=== PATIENT | female | born 2000 | race Two or more races ===

== ENCOUNTER → 2019-07-08 | Outpatient (CLI) | payer SELFPAY ==
--- NOTE | 2019-07-08 15:52 | RADIOLOGY REPORT (SQ) ---
EXAM DESCRIPTION: U/S [id number] TRNABD 1GES W/ODOP COMPLETED DATE/TIME: 07/08/2019 1:57 pm REASON FOR STUDY: Z34.01 ENCNTR FOR SUPRVSN OF NORMAL FIRST PREG, FIRST TRIMESTER Z34.01 ENCNTR FOR SUPRVSN OF NORMAL FIRST PREG, FIRST TRIMES COMPARISON: None. TECHNIQUE: Transabdominal static and realtime grayscale images acquired of the pelvis. Additional se lected spectral and color Doppler images recorded. All images stored on PACs. bHCG: Not available CLINICAL DATES: LMP 04/30/2019. 9 weeks 6 days. LIMITATIONS: None. FINDINGS: FETUS: Single Living intrauterine . ULTRASOUND EGA: 11 weeks 5 days ULTRASOUND BAILEE: 01/22/2020 EFW: Not applicable less than 20 weeks. CRL: 4.9 cm. FHR: 173 beats per minute. SURVEY: Too early to assess. AMNIOTIC FLUID: Adequate amount. PLACENTA: Not yet developed due to early gestation. SUBCHORIONIC BLEED: Yes SIZE OF BLEED: 2.1 x 1.9 x 0.3 cm UTERUS: No masses. No anomalies. CERVICAL LENGTH: 2 cm. Closed. RIGHT ADNEXA: Normal ovary with normal vascular flow. 3.6 x 2 x 2 cm. No adnexal free fluid. No adnexal masses. LEFT ADNEXA: Normal ovary with normal vascular flow. 3 x 2.2 x 1.3 cm. No adnexal free fluid. No adnexal masses. FREE FLUID: None. OTHER: No other significant finding. IMPRESSION: LIVING INTRAUTERINE . EGA 11 weeks 5 days. Trimester of : First trimester - 0 to 13 weeks. TECHNICAL DOCUMENTATION: JOB ID: [id number] [employer]- All Rights Reserved rev Reading location - IP/workstation name: [email or web address]
== END ==
LOC: RAD 13:06
PROVIDERS: ATTEND Midwife
DX: Z34.01 Encounter for supervision of normal first pregnancy, first trimester (principal); Z3A.11 11 weeks gestation of pregnancy
CPT/HCPCS: 76801

== ENCOUNTER 2019-07-29 14:54 | Emergency (ER) | payer SELFPAY ==
[2019-07-29] MEDS ORDERED: ACETAMINOPHEN 325 MG TABLET PO ONE (15:39)
--- NOTE | 2019-07-29 15:40 | ER Document Report ---
ED Medical Screen (RME) - General Chief Complaint: Abdominal Pain Stated Complaint: ABDOMINAL PAIN Time Seen by Provider: 07/29/19 15:24 Primary Care Provider: DAPHNE STARK CNM [Primary Care Provider] - Follow up as needed Mode of Arrival: Ambulatory Information source: Patient Notes: This 19-year-old female that speaks Urdu only presents to the emergency department with complaints of abdominal pain vaginal bleeding that started this morning. She reports she is G1, P0. Has not had a menses since April. Ultrasound report from July 07 notes approximately 9 weeks . She denies fever vomiting diarrhea but reports a headache. Denies trauma. I have greeted and performed a rapid initial assessment of this patient. A comprehensive ED assessment and evaluation of the patient, analysis of test results and completion of the medical decision making process will be conducted by additional ED providers. TRAVEL OUTSIDE OF THE [place] IN LAST 30 DAYS: No Physical Exam - Vital signs Vitals: Temp Pulse Resp BP Pulse Ox 98.6 F 71 16 107/58 L 98 07/29/19 15:01 07/29/19 15:01 07/29/19 15:01 07/29/19 15:01 07/29/19 15:01 Course - Vital Signs Vital signs: Temp Pulse Resp BP Pulse Ox 98.6 F 71 16 107/58 L 98 07/29/19 15:01 07/29/19 15:01 07/29/19 15:01 07/29/19 15:01 07/29/19 15:01 Doctor's Discharge - Discharge Referrals: DAPHNE STARK CNM [Primary Care Provider] - Follow up as needed
--- NOTE | 2019-07-29 16:45 | ER Document Report ---
ED GI/ - General Chief Complaint: Vaginal Bleeding Stated Complaint: ABDOMINAL PAIN Time Seen by Provider: 07/29/19 15:24 Primary Care Provider: [facility] [Provider Group] - Follow up as needed DAPHNE STARK CNM [NO LOCAL MD] - Follow up as needed Mode of Arrival: Ambulatory Information source: Patient Notes: 19-year-old female presented to ED for complaint of vaginal spotting today this morning about 3 AM. She states it is only spotting when she goes to the bathroom. She states she does have some pelvic pain and some vaginal pain. She does not have any vaginal discharge except for spotting when she goes to the bathroom. She states she was seen on 07 July she was 9 weeks . She denies any nausea vomiting or diarrhea. She states states she does sometimes have a headache. She states she has no other concerns. I did use the inspector toys [id number] to do this interview. TRAVEL OUTSIDE OF THE [place] IN LAST 30 DAYS: No - HPI Patient complains to provider of: Pelvic pain, , Vaginal bleeding, Vaginal pain Onset: This morning Timing/Duration: Gradual Quality of pain: Cramping Severity at maximum: Moderate Severity in ED: Mild Pain Level: 2 Location: Pelvis, Vaginal Vaginal bleeding (Compared to normal period): Spotting Associated symptoms: Other - No spotting pelvic pain mostly in the vaginal area Exacerbated by: Denies Relieved by: Denies Similar symptoms previously: No Recently seen / treated by doctor: Yes Past Medical History - General Information source: Patient - Social History Smoking Status: Never Smoker Smoking Education Provided: No Frequency of alcohol use: None Drug Abuse: None Lives with: Family Family History: Reviewed & Not Pertinent Patient has suicidal ideation: No Patient has homicidal ideation: No - Past Medical History Cardiac Medical History: Reports: None Pulmonary Medical History: Reports: None EENT Medical History: Reports: None Neurological Medical History: Reports: None Endocrine Medical History: Reports: None Renal/ Medical History: Reports: None Malignancy Medical History: Reports: None GI Medical History: Reports: None Musculoskeletal Medical History: Reports None Skin Medical History: Reports None Psychiatric Medical History: Reports: None Traumatic Medical History: Reports: None Infectious Medical History: Reports: None Surgical Hx: Negative Past Surgical History: Reports: None Physical Exam - Vital signs Vitals: Temp Pulse Resp BP Pulse Ox 98.6 F 71 16 107/58 L 98 07/29/19 15:01 07/29/19 15:01 07/29/19 15:01 07/29/19 15:01 07/29/19 15:01 Interpretation: Normal - General General appearance: Appears well, Alert - HEENT Head: Normocephalic, Atraumatic Eyes: Normal Pupils: PERRL - Respiratory Respiratory status: No respiratory distress Chest status: Nontender Breath sounds: Normal Chest palpation: Normal - Cardiovascular Rhythm: Regular Heart sounds: Normal auscultation Murmur: No - Abdominal Inspection: Normal Distension: No distension Bowel sounds: Normal Tenderness: Nontender Organomegaly: No organomegaly - Back Back: Normal, Nontender - Extremities General upper extremity: Normal inspection, Nontender, Normal color, Normal ROM, Normal temperature General lower extremity: Normal inspection, Nontender, Normal color, Normal ROM, Normal temperature, Normal weight bearing. No: Karan's sign - Neurological Neuro grossly intact: Yes Cognition: Normal Orientation: AAOx4 Orange Coma Scale Eye Opening: Spontaneous Gabe Coma Scale Verbal: Oriented Gabe Coma Scale Motor: Obeys Commands Orange Coma Scale Total: 15 Speech: Normal Motor strength normal: LUE, RUE, LLE, RLE Sensory: Normal - Psychological Associated symptoms: Normal affect, Normal mood - Skin Skin Temperature: Warm Skin Moisture: Dry Skin Color: Normal Course - Re-evaluation Re-evalutation: 07/29/19 21:16 Labs and ultrasound were discussed with patient through the explosive ordnance technician Anant. Written report of the labs and ultrasound given to patient for follow-up with her primary care doctor. Patient was able to verbalize understanding and agreement with treatment plan patient was discharged home. Patient was treated with antibiotics while in the emergency room. - Vital Signs Vital signs: Temp Pulse Resp BP Pulse Ox 98.4 F 71 14 120/72 100 07/29/19 18:30 07/29/19 15:01 07/29/19 18:30 07/29/19 18:30 07/29/19 18:30 - Laboratory Result Diagrams: 07/29/19 16:45 07/29/19 16:45 Laboratory results interpreted by me: 07/29/19 07/29/19 07/29/19 15:47 16:45 16:45 Hct 34.9 L RDW 14.5 H Lymph % (Auto) 10.5 L Absolute Neuts (auto) 8.3 H Seg Neutrophils % 83.4 H Sodium 136.5 L Creatinine 0.33 L ALT 46 H Beta HCG, Quant 45777.00 H Urine Blood LARGE H Ur Leukocyte Esterase SMALL H Urine Ascorbic Acid 20 H - Diagnostic Test Radiology reviewed: Image reviewed, Reports reviewed Discharge - Discharge Clinical Impression: UTI (urinary tract infection) during Qualifiers: Trimester: second trimester Qualified Code(s): O23.42 - Unspecified infection of urinary tract in , second trimester Condition: Stable Disposition: HOME, SELF-CARE Additional Instructions: URINARY TRACT INFECTION: Your evaluation indicates that you have a urinary tract infection. This is due to germs growing in the bladder. This is a common problem. This infection usually responds quickly to antibiotics. Your antibiotic should be taken exactly as prescribed. Drink plenty of fluids -- three to four quarts a day. Occasionally, a bladder anesthetic will be prescribed to help stop the feeling of urgency until the antibiotic has a chance to clear the infection. This may cause your urine to be dark orange. Certain urine infections require a culture. If the doctor obtained a culture, the results will be back in two days. You should call to see if a change in treatment is needed. A repeat urinalysis after you finish treatment is often recommended. The physician will let you know if further testing is required. Call the doctor if you develop fever, chills, flank pain, inability to urinate, or blood in the urine. CEPHALEXIN: The antibiotic you've been prescribed is a member of the cephalosporin class. This type of antibiotic covers a wide variety of infections, including those of the skin, lungs, and urinary tract. It's useful for staph infections. This antibiotic is slightly similar to the penicillin family. In rare cases, a person who is allergic to penicillin will also be allergic to this medication. If you have had a severe allergic reaction to penicillin, and have not taken this antibiotic since that time, notify your doctor. Antibiotics which cover many germs ("broad spectrum" antibiotics) are more likely to cause diarrhea or "yeast" infections. Women prone to vaginal yeast problems may suffer an attack after taking this antibiotic. In infants, oral thrush (white spots "stuck" on the cheek) or yeast diaper rash may result. See your doctor if these problems occur. Call at once if you develop itching, hives, shortness of breath, or lightheadedness. Rocephin You have been given an injection of an antibiotic called Rocephin (ceftriaxone). Sometimes the injection must be combined with antibiotic pills. For some infections, such as an uncomplicated ear infection, Rocephin provides all the antibiotic that's needed. The antibiotic will be in your body for about two days. For serious infections, we usually repeat doses of Rocephin daily. Side effects are very unusual following a shot. Women may develop vaginal yeast infections, and babies can get yeast (thrush) in the mouth following the use of antibiotics. Contact your physician if you have symptoms with this medication. Allergy to this antibiotic can result in hives, wheezing, faintness, or itching. If symptoms of allergy occur, call the doctor at once. FOLLOW-UP CARE: If you have been referred to a physician for follow-up care, call the physicians office for an appointment as you were instructed or within the next two days. If you experience worsening or a significant change in your symptoms, notify the physician immediately or return to the Emergency Department at any time for re-evaluation. Prescriptions: Cephalexin Monohydrate [Keflex 500 mg Capsule] 500 mg PO Q6H 5 Days #20 capsule Referrals: DAPHNE STARK CNM [NO LOCAL MD] - Follow up as needed [facility] [Provider Group] - Follow up as needed
[2019-07-29 16:57] LABS: ABSOLUTE EOSINOPHILS # (AUTO) 0.1 10^3/uL (0.0-0.6); ABSOLUTE MONOCYTES (AUTO) 0.5 10^3/uL (0.1-1.4); ABSOLUTE NEUT (AUTO) 8.3 10^3/uL (1.7-8.2); BASOPHILS % (AUTO) 0.3 % (0-2); HEMATOCRIT 34.9 % (36.0-47.0); HEMOGLOBIN 12.2 g/dL (12.0-15.5); LYMPHOCYTES % (AUTO) 10.5 % (13-45); MEAN CORPUSCULAR HEMOGLOBIN 29.2 pg (27.0-33.4); MEAN CORPUSCULAR VOLUME 84 fl (80-97); MONOCYTES % (AUTO) 4.8 % (3-13); PLATELET COUNT 376 10^3/uL (150-450); RED BLOOD COUNT 4.17 10^6/uL (3.72-5.28); RED CELL DISTRIBUTION WIDTH 14.5 % (11.5-14.0); SEGMENTED NEUTROPHILS % (AUTO) 83.4 % (42-78); TOTAL CELLS COUNTED % (AUTO) 100 %; WHITE BLOOD COUNT 9.9 10^3/uL (4.0-10.5)
[2019-07-29 17:15] LABS: ALBUMIN 4.4 g/dL (3.5-5.0); ALKALINE PHOSPHATASE 81 U/L (38-126); ANION GAP 11 (5-19); ASPARTATE AMINO TRANSFERASE 35 U/L (14-36); BILIRUBIN,TOTAL 0.3 mg/dL (0.2-1.3); BLOOD UREA NITROGEN 7 mg/dL (7-20); CALCIUM 9.4 mg/dL (8.4-10.2); CARBON DIOXIDE 22 mmol/L (22-30); CHLORIDE 104 mmol/L (98-107); GLUCOSE 79 mg/dL (75-110); POTASSIUM 3.7 mmol/L (3.6-5.0); TOTAL PROTEIN 7.9 g/dL (6.3-8.2)
[2019-07-29 17:16] LABS: AMORPHOUS SEDIMENT,URINE TRACE /HPF; APPEARANCE,URINE CLOUDY; BILIRUBIN,URINE NEGATIVE (NEGATIVE); COLOR,URINE AMBER; GLUCOSE, URINE NEGATIVE (NEGATIVE); KETONES,URINE NEGATIVE (NEGATIVE); LEUKOCYTE ESTERASE,URINE SMALL (NEGATIVE); NITRITE,URINE NEGATIVE (NEGATIVE); PROTEIN,URINE NEGATIVE (NEGATIVE); UROBILINOGEN,URINE NEGATIVE mg/dL (<2.0)
--- NOTE | 2019-07-29 17:20 | RADIOLOGY REPORT (SQ) ---
EXAM DESCRIPTION: U/S OB LIMITED COMPLETED DATE/TIME: 07/29/2019 5:10 pm REASON FOR STUDY: preg abd pain COMPARISON: Ultrasound from 07/08/2019. TECHNIQUE: Limited transabdominal grayscale ultrasound for evaluation of specific requested obstetri martin parameters. LIMITATIONS: None. FINDINGS: EGA: 15 weeks 0 days. CERVICAL LENGTH: 2.4 cm. Closed. LVP: 3.2 x 3.2 cm. FHR: 168 beats per minute. PRESENTATION: Variable. PLACENTA: Too early to assess. ANATOMY: Too early to assess. OTHER: The ovaries are normal in size and appearance and on Doppler there is intact arterial inflow a nd venous outflow within the ovarian stroma. There is no adnexal mass. IMPRESSION: Single live intrauterine with appropriate interval growth. Trimester of : Second trimester - 13 weeks 1 day to 27 weeks 6 days. TECHNICAL DOCUMENTATION: JOB ID: [id number] 2010 [employer]- All Rights Reserved Reading location - IP/workstation name: [email or web address]
[2019-07-29] MEDS ORDERED: CEFTRIAXONE INJ 1000 MG VIAL IM ONE (18:08)
[2019-07-29] MEDS ORDERED: LIDOCAINE 1% INJ-PF (10 MG/ML) 30 ML SDV INJ ONE (18:08)
[2019-07-29 18:31] VITALS: BP 120/72
== END 2019-07-29 18:32 | disposition home or self-care (01) ==
LOC: ER 14:54
DX: O23.41 Unspecified infection of urinary tract in pregnancy, first trimester (principal); O26.91 Pregnancy related conditions, unspecified, first trimester; R10.9 Unspecified abdominal pain; Z3A.09 9 weeks gestation of pregnancy
CPT/HCPCS: 99284; 96372; 86900; 86901; 36415; 84702; 85025; 80053; 81001; 76815; J3490; J0696

== ENCOUNTER → 2019-09-04 | Outpatient (CLI) | payer SELFPAY ==
--- NOTE | 2019-09-04 14:46 | RADIOLOGY REPORT (SQ) ---
EXAM DESCRIPTION: U/S OB 14+ TRNABD 1GES W/O DOP IMAGES COMPLETED DATE/TIME: 09/04/2019 1:38 pm REASON FOR STUDY: Z34.82 ENCOUNTER FOR SUPRVSN OF NORMAL , SECOND TRIMESTER Z34.82 ENCOUNT ER FOR SUPRVSN OF NORMAL , SECOND TRI COMPARISON: None. TECHNIQUE: Static and Dynamic grayscale imaging performed of gravid uterus using transabdominal appr oach. Additional selected color Doppler and spectral images recorded. All stored on PACS. LIMITATIONS: None. FINDINGS: FETUSES SEEN:1 EGA: 19 weeks 5 days Calculated using BPD,FL,HC,AC documented on images. No discrepancy with clinica l dates. BAILEE: 01/24/2020 EFW: 300 grams PERCENTILE: Not applicable. Fetus less than or equal to 20 weeks gestation. LVP: 7.8 cm PLACENTA: Posterior. GRADE: I PRESENTATION: Breech. ANATOMY: HEART RATE: 173 beats per minute. FOUR CHAMBER HEART: Visualized. THREE VESSEL CORD: Yes. CORD INSERTION: Visualized. KIDNEYS AND BLADDER: Visualized. Appear normal. STOMACH: Visualized. Appears normal. SPINE: Normal as visualized. BRAIN AND LATERAL VENTRICLES: Visualized. Appear normal. OTHER: No other significant finding. MATERNAL ADNEXA: Maternal ovaries not visualized. CERVICAL LENGTH: 4.4 cm. Closed. OTHER: No other significant finding. IMPRESSION: LIVING INTRAUTERINE . ESTIMATED GESTATIONAL AGE 19 weeks 5 days. NO VISUALIZED ANOMALIES. Trimester of : Second trimester - 13 weeks 1 day to 27 weeks 6 days. TECHNICAL DOCUMENTATION: JOB ID: [id number] 2010 [employer]- All Rights Reserved Reading location - IP/workstation name: [email or web address]
== END ==
LOC: RAD 12:31
PROVIDERS: ATTEND Midwife
DX: Z34.82 Encounter for supervision of other normal pregnancy, second trimester (principal); Z3A.19 19 weeks gestation of pregnancy
CPT/HCPCS: 76805

== ENCOUNTER 2019-09-12 03:50 | Emergency (ER) | payer SELFPAY ==
[2019-09-12] MEDS ORDERED: ACETAMINOPHEN 325 MG TABLET PO ONE (04:08)
--- NOTE | 2019-09-12 04:29 | ER Document Report ---
Entered by FRANCIA CRANDALL SCRIBE 09/12/19 0409 Acting as scribe for:JOSUE ANDERSON DO ED General - General Stated Complaint: ABDOMINAL PAIN Time Seen by Provider: 09/12/19 04:03 Primary Care Provider: JOSH PALMA MD [ACTIVE STAFF] - 09/12/19 DAPHNE STARK CNM [NO LOCAL MD] - Follow up as needed Mode of Arrival: Ambulatory Information source: Patient Notes: This 19 year old female patient, , currently x20 weeks and 6 days presents to the ED today with complaints of left hip pain that started yesterday afternoon and continued today. Patient is a Maori speaker, so the HPI is being relayed by a [employer] worker via speaker phone. Patient denies any injuries, trauma, or fall to her left hip. She reports that she is worried about the baby. She states that her due date is January 21 and that her next OBGYN appointment is this morning at 0845. She notes that she has felt the baby move during this . Denies dysuria, hematuria, or vaginal bleeding. TRAVEL OUTSIDE OF THE [place] IN LAST 30 DAYS: No - Related Data Allergies/Adverse Reactions: No Known Allergies Allergy (Unverified 09/12/19 04:24) Past Medical History - General Information source: Patient - Social History Smoking Status: Never Smoker Cigarette use (# per day): No Chew tobacco use (# tins/day): No Smoking Education Provided: No Frequency of alcohol use: None Drug Abuse: None Family History: Reviewed & Not Pertinent Patient has suicidal ideation: No Patient has homicidal ideation: No - Medical History Medical History: Negative Surgical Hx: Negative Review of Systems - Review of Systems Constitutional: No symptoms reported EENT: No symptoms reported Cardiovascular: No symptoms reported Respiratory: No symptoms reported Gastrointestinal: No symptoms reported Genitourinary: See HPI. denies: Dysuria, Hematuria Female Genitourinary: See HPI, - x20 weeks and 6 days. denies: Vaginal bleeding Musculoskeletal: See HPI, Joint pain - Left hip Skin: No symptoms reported Hematologic/Lymphatic: No symptoms reported Neurological/Psychological: No symptoms reported -: Yes All other systems reviewed and negative Physical Exam - Vital signs Vitals: Temp Pulse Resp BP Pulse Ox 97.4 F 68 16 102/63 100 09/12/19 04:00 09/12/19 04:00 09/12/19 04:00 09/12/19 04:00 09/12/19 04:00 Interpretation: Normal - General General appearance: Appears well, Alert In distress: None - HEENT Head: Normocephalic, Atraumatic Eyes: Normal Pupils: PERRL - Respiratory Respiratory status: No respiratory distress Chest status: Nontender Breath sounds: Normal Chest palpation: Normal - Cardiovascular Rhythm: Regular Heart sounds: Normal auscultation Murmur: No Friction rub: No Gallop: None auscultated - Abdominal Inspection: Other - Uterus is above the umbilicus which is consistent with x20 weeks gestation Distension: No distension Bowel sounds: Normal Tenderness: Nontender - Abdomen soft. No: Tender Organomegaly: No organomegaly - Back Back: Normal, Nontender - Extremities General upper extremity: Normal inspection Hip: Tender - Tenderness to palpation over left iliac crest and posterior hip - Neurological Neuro grossly intact: Yes Orientation: AAOx4 [place] Coma Scale Eye Opening: Spontaneous Gabe Coma Scale Verbal: Oriented [place] Coma Scale Motor: Obeys Commands Gabe Coma Scale Total: 15 - Psychological Associated symptoms: Normal affect, Normal mood - Skin Skin Temperature: Warm Skin Moisture: Dry Skin Color: Normal Course - Re-evaluation Re-evalutation: 09/12/19 04:36 MDM Pleasant 19 year old primagravida is 20 6/7 weeks . Left side iliac crest pain. No trauma or injury. She has next ob appt today. + movement. Seems to be musculoskeletal pain as there is ttp with palapation of left iliac crest and a bit of palpable pain lower lumbar region on the left adjacent to iliac crest. UA reviewed and better after tylenol here. She is encouraged to keep ob appt and understands this. - Vital Signs Vital signs: Temp Pulse Resp BP Pulse Ox 97.4 F 68 16 102/63 100 09/12/19 04:30 09/12/19 04:00 09/12/19 04:00 09/12/19 04:00 09/12/19 04:00 - Laboratory Laboratory results interpreted by me: 09/12/19 04:40 Urine Protein 30 H Urine Blood SMALL H Urine Nitrite POSITIVE H Ur Leukocyte Esterase LARGE H Urine Ascorbic Acid 20 H Discharge - Discharge Clinical Impression: Second trimester Back pain Qualifiers: Back pain location: low back pain Chronicity: acute Back pain laterality: left Sciatica presence: without sciatica Qualified Code(s): M54.5 - Low back pain UTI (urinary tract infection) Qualifiers: Urinary tract infection type: site unspecified Hematuria presence: with hematuria Qualified Code(s): N39.0 - Urinary tract infection, site not specified; R31.9 - Hematuria, unspecified Condition: Good Disposition: HOME, SELF-CARE Instructions: Low Back Pain ([facility]) Additional Instructions: Keep the follow up as scheduled today with the Ob doctor. Please return here for any problems or concerns including but not limited to vaginal bleeding or abdominal pain or other problems or concerns. You should take tylenol for pain. Prescriptions: Cephalexin Monohydrate [Keflex 500 mg Capsule] 500 mg PO TID #30 capsule Referrals: DAPHNE STARK CNM [NO LOCAL MD] - Follow up as needed JOSH PALMA MD [ACTIVE STAFF] - 09/12/19 I personally performed the services described in the documentation, reviewed and edited the documentation which was dictated to the scribe in my presence, and it accurately records my words and actions.
[2019-09-12 05:48] LABS: APPEARANCE,URINE CLOUDY; BILIRUBIN,URINE NEGATIVE (NEGATIVE); COLOR,URINE YELLOW; GLUCOSE, URINE NEGATIVE (NEGATIVE); KETONES,URINE NEGATIVE (NEGATIVE); LEUKOCYTE ESTERASE,URINE LARGE (NEGATIVE); NITRITE,URINE POSITIVE (NEGATIVE); PROTEIN,URINE 30 mg/dL (NEGATIVE); URINE SPECIFIC GRAVITY 1.015; UROBILINOGEN,URINE NEGATIVE mg/dL (<2.0)
[2019-09-12] MEDS ORDERED: CEPHALEXIN 500 MG CAPSULE PO ONE (05:53)
[2019-09-12 06:15] VITALS: BP 104/73
== END 2019-09-12 06:15 | disposition home or self-care (01) ==
LOC: ER 03:50
DX: O23.42 Unspecified infection of urinary tract in pregnancy, second trimester (principal); O99.89 Other specified diseases and conditions complicating pregnancy, childbirth and the puerperium; M25.552 Pain in left hip; M54.5 Low back pain; O26.892 Other specified pregnancy related conditions, second trimester; R31.9 Hematuria, unspecified; Z3A.20 20 weeks gestation of pregnancy
CPT/HCPCS: 81001; 99283

== ENCOUNTER 2019-12-23 20:05 | Outpatient (CLI) | payer SELFPAY ==
[2019-12-23 21:03] LABS: APPEARANCE,URINE CLEAR; BILIRUBIN,URINE NEGATIVE (NEGATIVE); COLOR,URINE STRAW; GLUCOSE, URINE NEGATIVE (NEGATIVE); KETONES,URINE NEGATIVE (NEGATIVE); LEUKOCYTE ESTERASE,URINE NEGATIVE (NEGATIVE); NITRITE,URINE NEGATIVE (NEGATIVE); PROTEIN,URINE NEGATIVE (NEGATIVE); URINE SPECIFIC GRAVITY 1.003; UROBILINOGEN,URINE NEGATIVE mg/dL (<2.0)
[2019-12-23 21:16] LABS: URINE AMPHETAMINES SCREEN NEGATIVE; URINE BARBITURATES SCREEN NEGATIVE; URINE BENZODIAZEPINES SCREEN NEGATIVE; URINE COCAINE SCREEN NEGATIVE; URINE MARIJUANA (THC) SCREEN NEGATIVE; URINE METHADONE SCREEN NEGATIVE; URINE PHENCYCLIDINE SCREEN NEGATIVE
--- NOTE | 2019-12-23 21:41 | Non Stress Test Report ---
Non Stress Test Datetime Report Generated by CPN: 12/23/2019 21:40 DEMOGRAPHIC EGA NST: 35.5 INDICATION Indication for Study (NST) Other: lc VITAL SIGNS Temperature - NST: 97.8 Pulse - NST: 75 RESP - NST: 14 NBPSYS NST: 100 NBPDIA NST: 56 MONITORING Monitor Explained: Monitor Explained; Test Explained; Patient Verbalized Understanding Time on Monitor: 12/23/2019 20:30 NST INTERVENTIONS NST Interventions: Reposition Patient Physician Notified NST: Dr Sj BABY A: [id number] BABY A Movement : Present Contraction Frequency : 4-8 FHR Baseline : 125 Accelerations : 15X15 Decelerations : None Variability : Moderate 6-25bpm NST Review: Meets Criteria for Reactive NST NST Review and Verified By : Trace Maharaj RN NST Results: Reactive NST REPORT Report Trigger: Send Report
== END 2019-12-23 21:38 | disposition home or self-care (01) ==
LOC: LC 20:05
PROVIDERS: ATTEND Obstetrics & Gynecology
DX: O26.893 Other specified pregnancy related conditions, third trimester (principal); R06.02 Shortness of breath; Z3A.35 35 weeks gestation of pregnancy
CPT/HCPCS: 59025; 80307; 81001

== ENCOUNTER 2020-01-11 02:46 | Outpatient (CLI) | payer SELFPAY ==
[2020-01-11 03:43] LABS: APPEARANCE,URINE SLIGHTLY-CLOUDY; BILIRUBIN,URINE NEGATIVE (NEGATIVE); COLOR,URINE STRAW; GLUCOSE, URINE NEGATIVE (NEGATIVE); KETONES,URINE NEGATIVE (NEGATIVE); LEUKOCYTE ESTERASE,URINE NEGATIVE (NEGATIVE); NITRITE,URINE NEGATIVE (NEGATIVE); PROTEIN,URINE NEGATIVE (NEGATIVE); URINE SPECIFIC GRAVITY 1.003; UROBILINOGEN,URINE NEGATIVE mg/dL (<2.0)
[2020-01-11 03:57] LABS: URINE AMPHETAMINES SCREEN NEGATIVE; URINE BARBITURATES SCREEN NEGATIVE; URINE BENZODIAZEPINES SCREEN NEGATIVE; URINE COCAINE SCREEN NEGATIVE; URINE MARIJUANA (THC) SCREEN NEGATIVE; URINE METHADONE SCREEN NEGATIVE; URINE PHENCYCLIDINE SCREEN NEGATIVE
[2020-01-11] MEDS ORDERED: HYDROXYZINE PAMOATE 50 MG CAPSULE PO ONE (04:22)
--- NOTE | 2020-01-11 04:30 | Non Stress Test Report ---
Non Stress Test Datetime Report Generated by CPN: 01/11/2020 04:30 DEMOGRAPHIC EGA NST: 38.3 INDICATION Indication for Study (NST) Other: labor check URINE RESULTS Urine Protein, NST: Negative Urine Ketones - NST: Negative Urine Glucose - NST: Negative Urine Blood - NST: Negative MONITORING Monitor Explained: Monitor Explained; Test Explained; Patient Verbalized Understanding Time on Monitor: 01/11/2020 03:02 Time off Monitor: 01/11/2020 04:23 NST INTERVENTIONS NST Interventions: PO Hydration BABY A: [id number] BABY A Movement : Present (Annotations: Data stored by [facility] on behalf of user) Contraction Frequency : irregular FHR Baseline : 135 Accelerations : 15X15 Decelerations : None Variability : Moderate 6-25bpm NST Review: Meets Criteria for Reactive NST NST Review and Verified By : Trace Miller RN NST Results: Reactive NST REPORT Report Trigger: Send Report
[2020-01-11] MEDS ORDERED: HYDROXYZINE PAMOATE 50 MG CAPSULE ONE (04:32)
== END 2020-01-11 04:43 | disposition home or self-care (01) ==
LOC: LC 02:46
PROVIDERS: ATTEND Student in an Organized Health Care Education/Training Program
DX: O47.1 False labor at or after 37 completed weeks of gestation (principal); Z3A.38 38 weeks gestation of pregnancy
CPT/HCPCS: 59025; 80307; 81005

== ENCOUNTER 2020-01-22 10:54 | Inpatient (IN) | payer SELFPAY ==
[2020-01-22 11:41] LABS: APPEARANCE,URINE SLIGHTLY-CLOUDY; BILIRUBIN,URINE NEGATIVE (NEGATIVE); COLOR,URINE YELLOW; GLUCOSE, URINE NEGATIVE (NEGATIVE); KETONES,URINE NEGATIVE (NEGATIVE); LEUKOCYTE ESTERASE,URINE NEGATIVE (NEGATIVE); NITRITE,URINE NEGATIVE (NEGATIVE); PROTEIN,URINE NEGATIVE (NEGATIVE); URINE SPECIFIC GRAVITY 1.014; UROBILINOGEN,URINE NEGATIVE mg/dL (<2.0)
[2020-01-22 11:58] LABS: URINE AMPHETAMINES SCREEN NEGATIVE; URINE BARBITURATES SCREEN NEGATIVE; URINE BENZODIAZEPINES SCREEN NEGATIVE; URINE COCAINE SCREEN NEGATIVE; URINE MARIJUANA (THC) SCREEN NEGATIVE; URINE METHADONE SCREEN NEGATIVE; URINE PHENCYCLIDINE SCREEN NEGATIVE
[2020-01-22] MEDS ORDERED: RINGERS SOLUTION,LACTATED 1,000 ML IV PRN (12:27)
--- NOTE | 2020-01-22 12:39 | RADIOLOGY REPORT (SQ) ---
EXAM DESCRIPTION: U/S OB LIMITED IMAGES COMPLETED DATE/TIME: 01/22/2020 12:18 pm REASON FOR STUDY: 38wga [facility] COMPARISON: 09/04/2019 TECHNIQUE: Limited transabdominal grayscale ultrasound for evaluation of specific requested obstetri martin parameters. LIMITATIONS: None. FINDINGS: CERVICAL LENGTH: Not visualized. MIHIR: 5.3 cm. FHR: 137 beats per minute. PRESENTATION: Cephalic. PLACENTA: Not well visualized due to positioning. ANATOMY: Not assessed. Head circumference is limited due to lie. Based on head circumfe rence estimated age is 39 weeks 3 days. OTHER: LVP is calculated at 3.0 x 2.0 cm. IMPRESSION: LIMITED OBSTETRICAL ULTRASOUND WITH MEASURED PARAMETERS DELINEATED ABOVE. Trimester of : Third trimester - 28 weeks to delivery. TECHNICAL DOCUMENTATION: JOB ID: [id number] 2010 [employer]- All Rights Reserved Reading location - IP/workstation name: [email or web address]
[2020-01-22 13:04] LABS: ABSOLUTE BASOPHILS # (AUTO) 0.1 10^3/uL (0.0-0.2); ABSOLUTE EOSINOPHILS # (AUTO) 0.1 10^3/uL (0.0-0.6); ABSOLUTE LYMPHOCYTES (AUTO) 1.2 10^3/uL (0.5-4.7); ABSOLUTE MONOCYTES (AUTO) 0.4 10^3/uL (0.1-1.4); ABSOLUTE NEUT (AUTO) 5.6 10^3/uL (1.7-8.2); BASOPHILS % (AUTO) 0.7 % (0-2); EOSINOPHILS % (AUTO) 1.1 % (0-6); HEMATOCRIT 33.3 % (36.0-47.0); HEMOGLOBIN 11.7 g/dL (12.0-15.5); LYMPHOCYTES % (AUTO) 16.2 % (13-45); MEAN CORPUSCULAR HEMOGLOBIN 29.5 pg (27.0-33.4); MEAN CORPUSCULAR HGB CONC 35.1 g/dL (32.0-36.0); MEAN CORPUSCULAR VOLUME 84 fl (80-97); MONOCYTES % (AUTO) 5.4 % (3-13); PLATELET COUNT 257 10^3/uL (150-450); RED BLOOD COUNT 3.96 10^6/uL (3.72-5.28); RED CELL DISTRIBUTION WIDTH 17.1 % (11.5-14.0); SEGMENTED NEUTROPHILS % (AUTO) 76.6 % (42-78); TOTAL CELLS COUNTED % (AUTO) 100 %; WHITE BLOOD COUNT 7.3 10^3/uL (4.0-10.5)
--- NOTE | 2020-01-22 13:32 | Admission Physical ---
Datetime Report Generated by CPN: 01/22/2020 13:32 CURRENT ADMISSION Hx Assessment: The History has been Reviewed and is Current Chief Complaint: Sent from OB Office for Evaluation and Treatment - Please Specify Indication for Induction: Oligohydramnios Admit Impression : Term, Intrauterine Admit Plan: Admit to Unit; Initiate Labor Induction Protocol ALLERGIES Medication Allergies: No Medication Allergies: No Known Allergies (01/22/2020) Latex: Unknown Food Allergies: none Environmental Allergies: none OBSTETRICAL HISTORY EDC: 01/22/2020 00:00 : 1 Para: 0 Term: 0 : 0 SAB: 0 IAB: 0 Ectopic: 0 Livin Cesareans: 0 VBACs: 0 Multiple Births: 0 Gestational Diabetes: No Rh Sensitization: No Incompetent Cervix: No KIRILL: No Infertility: No ART Treatment: No Uterine Anomaly: No IUGR: No Hx Previous C/S: No Macrosomia: No Hx Loss/Stillborn: No PIH: No Hx : No Placenta Previa/Abruption: No Depression/PP Depression: No PTL/PROM: No Post Hemorrhage: No Current Procedures: Ultrasound; NST Obstetrical History Comments: G1- current SEE RECORDS Alcohol: No Marijuana : No Cocaine: No Other Illicit Drugs: No Cigarettes: Never Smoker. [id number] Advised to Stop: No Cigarette Comments: patient non smoker MEDICAL HISTORY Diabetes: No Blood Transfusion: No Pulmonary Disease (Asthma, TB): No Breast Disease: No Hypertension: No Pediatric Neuropsychologist Surgery: No Heart Disease: No Hosp/Surgery: No Autoimmune Disorder: No Anesthetic Complications: No Kidney Disease: No Abnormal Pap Smear: Yes Neuro/Epilepsy: No Psychiatric Disorders: No Other Medical Diseases: No Hepatitis/Liver Disease: No Significant Family History: No Varicosities/Phlebitis: No Trauma/Violence : No Thyroid Dysfunction: No INFECTIOUS HISTORY Gonorrhea: No Genital Herpes: No Chlamydia: No Tuberculosis: No Syphilis: No Hepatitis: No HIV/AIDS Exposure: No Rash or Viral Illness: No HPV: No PHYSICAL EXAM General: Normal Heart: Normal Lungs: Normal Abdomen: Normal Genitourinary Exam: Normal Extremities: Normal Pelvic Type: Adequate Vital Signs: Reviewed; Within Normal Limits MEMBRANES Membranes: Intact FETUS A EGA: 40.0 Monitoring: External US FHR Category: Category I Presentation: Vertex Admit Comment: 19yo G1@ 40wga into clinic today for health department consult and sent to L_D for growth u/s and actim prom (pt reported her discharged as leaking but upon arrival and discussion in [place] language she declined LOF and reports increased discharge). Pt is Opos, Rubella Non-immune, GBS neg with uncomplicated . On completion of growth u/s it was noted that patient is oligohydramnious and actim prom was negative. Decision was made to admit and induce for oligohydramnious. After cervical exam plan was made to start induction with cook's catheter and pitocin and will start this when census permits. For now pt to be on continous monitoring. Dr. Rodgers is the OB material liaison today and agreable to poc. PLANS FOR LABOR AND DELIVERY Labor and Delivery: None Pain Management: Natural Feeding Preference: Breast Benefit of Breast Feed Discussed: Yes Circumcision: Yes INFORMED CONSENT Assignment: Kaylee Rodgers MD Signature: with User ID: Nirmala : with User ID: [email or web address]
[2020-01-22] MEDS ORDERED: OXYTOCIN/0.9 % SODIUM CHLORIDE 30 UNIT/500 ML RTUINJ IV PRN (20:32)
[2020-01-22] MEDS ORDERED: MISOPROSTOL 0.2 MG TABLET ONE (23:39)
[2020-01-22] MEDS ORDERED: OXYTOCIN 10 UNIT/ML VIAL ONE (23:39)
[2020-01-22] MEDS ORDERED: LIDOCAINE 1% INJ-PF (10 MG/ML) 30 ML SDV ONE (23:39)
[2020-01-22] MEDS ORDERED: OXYTOCIN/0.9 % SODIUM CHLORIDE 30 UNIT/500 ML RTUINJ ONE (23:40)
[2020-01-23] MEDS ORDERED: NALBUPHINE HCL INJ 10 MG/1 ML AMPULE IV ONE (04:49)
[2020-01-23] MEDS ORDERED: PROMETHAZINE HCL INJ 25 MG/1 ML VIAL IV ONE (04:49)
[2020-01-23] MEDS ORDERED: NALBUPHINE HCL INJ 10 MG/1 ML AMPULE ONE (05:02)
[2020-01-23] MEDS ORDERED: PROMETHAZINE HCL INJ 25 MG/1 ML VIAL ONE (05:02)
[2020-01-23] MEDS ORDERED: EPHEDRINE SULFATE INJ 50 MG/1 ML AMPULE ONE (08:54)
[2020-01-23] MEDS ORDERED: FENTANYL/BUPIVACAINE/NS/PF 300 MCG/150 ML RTUINJ EPI ONE (08:55)
[2020-01-23] MEDS ORDERED: ROPIVACAINE HCL 0.2% INJ/PF (2 MG/ML) 20 ML SDV ONE (08:55)
[2020-01-23] MEDS ORDERED: AMPICILLIN SOD/SULBACTAM 3 GM VIAL IV ONE (11:37)
[2020-01-23] MEDS ORDERED: AMPICILLIN SOD/SULBACTAM 3 GM VIAL ONE ×2 (11:43→18:02)
[2020-01-23] MEDS ORDERED: AMPICILLIN SOD/SULBACTAM 1.5 GM VIAL IV SCH (12:00)
[2020-01-23] MEDS ORDERED: DIPHENHYDRAMINE HCL 50 MG/ML VIAL ONE (12:47)
[2020-01-23] MEDS ORDERED: FENTANYL CITRATE INJ/PF 100 MCG/2 ML AMPUL IV ONE (14:15)
[2020-01-23] MEDS ORDERED: DIPH/PERTUSS(ACELL)/TETANUS VAC/PF 0.5 ML SYR (>=10YO) IM PRN (14:57)
[2020-01-23] MEDS ORDERED: MEASLES,MUMPS&RUBELLA VACC/PF 0.5 ML VIAL SUBCUT PRN (14:57)
[2020-01-23] MEDS ORDERED: MAGNESIUM HYDROXIDE SUSP 30 ML UDCUP PO PRN (14:57)
[2020-01-23] MEDS ORDERED: PROMETHAZINE HCL 25 MG SUPP.RECT PR PRN (14:57)
[2020-01-23] MEDS ORDERED: ACETAMINOPHEN 650 MG SUPP.RECT PR PRN (14:57)
[2020-01-23] MEDS ORDERED: DIPHENHYDRAMINE HCL 25 MG CAPSULE PO PRN (14:57)
[2020-01-23] MEDS ORDERED: BENZOCAINE/MENTHOL AEROSOL SPRAY 56 ML TOP PRN (14:57)
[2020-01-23] MEDS ORDERED: OXYTOCIN/0.9 % SODIUM CHLORIDE 30 UNIT/500 ML RTUINJ IV PRN (14:57)
[2020-01-23] MEDS ORDERED: PROMETHAZINE HCL 25 MG TABLET PO PRN (14:57)
[2020-01-23] MEDS ORDERED: PSEUDOEPHEDRINE HCL 30 MG TABLET PO PRN (14:57)
[2020-01-23] MEDS ORDERED: ZOLPIDEM TARTRATE 5 MG TABLET PO PRN (14:57)
[2020-01-23] MEDS ORDERED: PROMETHAZINE HCL INJ 25 MG/1 ML VIAL IV PRN (14:57)
[2020-01-23] MEDS ORDERED: DIBUCAINE 1% OINTMENT 28 GM TP PRN (14:57)
[2020-01-23] MEDS ORDERED: NA PHOS,M-B/NA PHOS,DI-BA (ADULT) 133 ML ENEMA PR PRN (14:57)
[2020-01-23] MEDS ORDERED: GLYCERIN/WITCH HAZEL LEAF 1 EACH MED..WIPE TP PRN (14:57)
[2020-01-23] MEDS ORDERED: ACETAMINOPHEN WITH CODEINE #3 TABLET PO PRN ×2 (14:57)
--- NOTE | 2020-01-23 15:18 | Warning Signs in Babies ---
VOD Warning Signs Datetime Report Generated by [facility]: 01/23/2020 15:18 VOD#[id number] -Warning Signs in Babies: Needs to be viewed. (12/23/2019 20:50:Teetee James RN)
[2020-01-23] MEDS ORDERED: METHYLERGONOVINE MALEATE INJ/PF 0.2 MG/1 ML AMPULE ONE (15:28)
[2020-01-23] MEDS ORDERED: FENTANYL CITRATE INJ/PF 100 MCG/2 ML AMPUL ONE (15:52)
[2020-01-23] MEDS ORDERED: LIDOCAINE 1% INJ-PF (10 MG/ML) 30 ML SDV ONE (16:07)
[2020-01-23] MEDS ORDERED: ONDANSETRON HCL INJ/PF 4 MG/2 ML SDV ONE (16:34)
[2020-01-23] MEDS ORDERED: HYDROMORPHONE HCL INJ/PF 2 MG/ML AMPULE ONE (16:34)
[2020-01-23] MEDS ORDERED: HYDROMORPHONE HCL INJ/PF 2 MG/ML AMPULE IV ONE (16:38)
[2020-01-23] MEDS ORDERED: ONDANSETRON HCL INJ/PF 4 MG/2 ML SDV IV ONE (16:40)
[2020-01-23] MEDS ORDERED: DOCUSATE SODIUM 100 MG CAPSULE ONE (18:02)
[2020-01-23] MEDS ORDERED: FERROUS SULFATE 325 MG TABLET PO ONE (18:02)
[2020-01-23] MEDS ORDERED: BENZOCAINE/MENTHOL AEROSOL SPRAY 56 ML ONE (18:02)
[2020-01-23] MEDS: DOCUSATE SODIUM 100 MG CAPSULE PO SCH (18:09)
[2020-01-23] MEDS: AMPICILLIN SODIUM/SULBACTAM NA 1.5 GM in NORMAL SALINE 50 ML IV SCH (18:09)
[2020-01-23] MEDS: FERROUS SULFATE 325 MG TABLET PO SCH (18:09)
[2020-01-23 18:12] LABS: HEMATOCRIT 29.1 % (36.0-47.0); HEMOGLOBIN 9.9 g/dL (12.0-15.5); MEAN CORPUSCULAR HEMOGLOBIN 28.9 pg (27.0-33.4); MEAN CORPUSCULAR HGB CONC 33.9 g/dL (32.0-36.0); MEAN CORPUSCULAR VOLUME 85 fl (80-97); PLATELET COUNT 240 10^3/uL (150-450); RED BLOOD COUNT 3.42 10^6/uL (3.72-5.28); RED CELL DISTRIBUTION WIDTH 17.4 % (11.5-14.0); WHITE BLOOD COUNT 18.7 10^3/uL (4.0-10.5)
--- NOTE | 2020-01-23 18:28 | Delivery Summary ---
Del Sum A-C Datetime Report Generated by CPN: 01/23/2020 18:28 DELIVERY PERSONNEL DELIVERY PERSONNEL: [id number] Delivery Doctor:: Lane Beckett MD Labor and Delivery Nurse:: Teetee James RNretort fireman Nurse:: SONJA Sanchez Nursery Nurse:: Laura Rizo RN Toolsmith/CANE STRIPPER: Teressa Shabazz, GEOLOGICAL SCIENCE TEACHER MATERNAL INFORMATION Delivery Anesthesia: Epidural Medications After Delivery: Pitocin 30 Units in 500ml NS/D5W; Cytotec 1000mcg Per Rectum/Vagina Delivery QBL: 200 Maternal Complications: Chorioamnionitis LABOR SUMMARY EDC: 01/22/2020 00:00 No. Babies in Womb: 1 Attempted: No Labor Anesthesia: Epidural LABOR INFORMATION Reason for Induction: Not Applicable Onset of Labor: 01/23/2020 08:30 Complete Dilatation: 01/23/2020 14:11 Oxytocin: Augmentation Group B Beta Strep: Negative Antibiotics # of Doses: 1 Antibiotics Time of Last Dose: 01/23/2020 11:49 Name of Antibiotic Given: Unasyn 3gm (Annotations: Data stored by N on behalf of user) Steroids Given: None Reason Steroids Not Administered: Not Applicable MEMBRANES Membranes Rupture Method: Artificial Rupture of Membranes: 01/23/2020 10:46 Length of Rupture (hr): 3.90 Amniotic Fluid Color: Clear Amniotic Fluid Amount: Small Amniotic Fluid Odor: Foul STAGES OF LABOR Stage 1 hr: 5 Stage 1 min: 41 Stage 2 hr: 0 Stage 2 min: 29 Stage 3 hr: 0 Stage 3 min: 3 Total Time in Labor hr: 6 Total Time in Labor min: 13 VAGINAL DELIVERY Episiotomy: None Laceration #1: Perineal; Vaginal Laceration Extension #1: First Degree Laceration Repair: Yes Laceration Repair Note: 2-0 vicryl layed repair Sponge Count Correct: N/A Sharps Count Correct: N/A CSECTION DELIVERY Primary Indication: N/A Secondary Indication: N/A CSection Incidence: N/A Labor: N/A Elective: N/A CSection Incision: N/A BABY A INFORMATION Infant Delivery Date/Time: 01/23/2020 14:40 Method of Delivery: Vaginal Nurse Controlled Delivery: No Born in Route : No : N/A Forceps: N/A Vacuum Extraction: Successful Shoulder Dystocia : No PRESENTATION/POSITION BABY A Presentation: Cephalic Cephalic Presentation: Vertex Vertex Position: Left Occipital Anterior Breech Presentation: N/A PLACENTA INFORMATION BABY A Placenta Delivery Time : 01/23/2020 14:43 Placenta Method of Delivery: Spontaneous Placenta Status: Delivered SCORES BABY A Heart Rate 1 min: >100 bpm Resp Effort 1 min: Good Cry Reflex Irritability 1 min: Cough or Sneeze or Pulls Away Muscle Tone 1 min: Active Motion Color 1 min: Blue/Pale Resuscitation Effort 1 min: Tactile Stimulation SCORE 1 MIN: 8 Heart Rate 5 min: >100 bpm Resp Effort 5 min: Good Cry Reflex Irritability 5 min: Cough or Sneeze or Pulls Away Muscle Tone 5 min: Active Motion Color 5 min: Body Santiago, Extremities Blue Resuscitation Effort 5 min: Tactile Stimulation SCORE 5 MIN: 9 INFANT INFORMATION BABY A Gestational Age at Delivery: 40.1 Gestational Status: Full Term- 39- 40.6 Weeks Outcome : Liveborn Condition : Stable Infant Sex: Male IDENTIFICATION BABY A Infant Verification Date/Time: 01/23/2020 14:55 ID Band Number: [id number] Mother's Name Verified: Yes RN Verifying Infant: SAutry Additional Verifying Personnel: J Neibr WEIGHT/LENGTH BABY A Birthweight (gm): 3835 Infant Weight (lb): 8 Weight (oz): 7 Length (in): 21.00 Infant Length (cm): 53.34 CORD INFORMATION BABY A No. Cord Vessels: 3 Nuchal Cord : N/A (Annotations: Data stored by [facility] on behalf of user) Cord Blood Taken: Yes-For Eval (Mom's Blood Type - or O+) Suction: Mouth; Nose ASSESSMENT BABY A Infant Complications: None Physical Findings at Delivery: Within Normal Limits Skin to Skin: No Skin to Skin Time (min): 5 Transferred To: Remains with Mother BABY B INFORMATION : N/A SIGNATURES Signature: with User ID: [email or web address]
--- NOTE | 2020-01-23 18:28 | Birth Certificate Data ---
Cert Data Datetime Report Generated by CPN: 01/23/2020 18:28 CERTIFICATE DATA 47a. Care: Yes (12/23/2019 20:50:Ofelia Lee RN) 47b. Date of First Visit: 07/01/2019 00:00 (12/23/2019 20:50:Ofelia Lee RN) 48a. Number of Prev Live Births: 0 (12/23/2019 20:50:SONJA Alfaro) 48b. Now Livin (12/23/2019 20:50:Eve Maharaj RN) 48c. Live Births Now : 0 (12/23/2019 20:50:QS system process) 48e. Losses: 0 (12/23/2019 20:50:SONJA Alfaro) RISK FACTORS IN THIS 49a. Diabetes: No (12/23/2019 20:50:Ofelia Lee RN) 49b. Hypertension: No (12/23/2019 20:50:Ofelia Lee RN) 49c. Previous Births: 0 (12/23/2019 20:50:Eve Maharaj RN) 49d. Stillborns: No (12/23/2019 20:50:Ofelia Lee RN) 49d. IUGR: No (12/23/2019 20:50:Ofelia Lee RN) 49e. Infertility Treatment: No (12/23/2019 20:50:Ofelia Lee RN) 49f. Previous Cesareans: 0 (12/23/2019 20:50:SONJA Alfaro) Mother's Height 50b. Height Inches: 58 (01/22/2020 11:36:QS system process) Mother's Weight 51a. Pre- Weight (lbs): 118 (12/23/2019 20:50:Ofelia Lee RN) 51b. Weight at Delivery (lbs): 143 (01/22/2020 11:36:QS system process) 52. Dt Last Normal Menses Began: 04/30/2019 00:00 (12/23/2019 20:50:SONJA Alfaro) Infections Present/Treated 53a. Gonorrhea: No (12/23/2019 20:50:Ofelia Lee RN) Results this Hospital Visit : Negative (12/23/2019 20:50:Ofelia Lee RN) 53b. Syphilis: No (12/23/2019 20:50:Ofelia Lee RN) Results this Hospital Visit: NONREACTIVE (01/22/2020 12:49:QS system process) 53c. Chlamydia: No (12/23/2019 20:50:Ofelia Lee RN) Results this Hospital Visit: Negative (12/23/2019 20:50:Ofelia Lee RN) 53d. Hepatitis B: No (12/23/2019 20:50:Ofelia Lee RN) Results this Hospital Visit: Negative (12/23/2019 20:50:Ofelia Lee RN) 53e. Hepatitis C: Negative (12/23/2019 20:50:Ofelia Lee RN) 53h. Mother Tested for HBsAG: Yes (12/23/2019 20:50:Blanca Nicolas Ramya) 53i. Date Tested: 08/14/2019 00:00 (12/23/2019 20:50:Kita Doran RN) 53j. Test Result: Negative (12/23/2019 20:50:Atullogancesar Lee RN) Obstetric Procedures 54a, b, c. Obstetric Procedures: Ultrasound; NST (12/23/2019 20:50:Ofelia Lee RN) Cigarette Smoking 55a. 3 Months Before Preg - Ci (12/23/2019 20:50:Blanca Nicolas, [facility]) 55b. 1st Trimester of Preg- Ci (12/23/2019 20:50:Blanca Nicolas, RN) 55c. 2nd Trimester of Preg- Ci (12/23/2019 20:50:Blanca Nicolas, [facility]) 55d. 3rd Trimester of Preg- Ci (12/23/2019 20:50:Blanca Nicolas, [facility]) Onset of Labor 56a. PROM >12 Hrs: 3.90 (12/23/2019 20:50:QS system process) 56b. Precipitous Labor <3 Hrs: 6 (12/23/2019 20:50:QS system process) 56c. Prolonged Labor > 20 Hrs: 6 (12/23/2019 20:50:QS system process) 57a. Induction of Labor: Augmentation (12/23/2019 20:50:Letty Santana RN) 57c. Non-Vertex Presentation A: Vertex (12/23/2019 20:50:Teetee James RN) 57d. Steroids - Lung Mat: None (12/23/2019 20:50:Letty Santana RN) 57d. Steroids - Lung Mat: Not Applicable (12/23/2019 20:50:Letty Santana RN) 57e. Antibiotics During Labor: 01/23/2020 11:49 (12/23/2019 20:50:Teetee James RN) 57f. Mat Chorio or Temp >100.4: 98.5 (12/23/2019 20:50:Teetee James RN) 57g. Moderate/Heavy Meconium: Clear (01/23/2020 10:46:Teetee James RN) 57h. Intolerance of Labor: N/A (12/23/2019 20:50:Teetee James RN) : N/A (12/23/2019 20:50:Teetee James RN) 57i. Epidural/Spinal Anesthesia: Epidural (12/23/2019 20:50:Teetee James RN) Method of Delivery 58a. Forceps - Unsuccessful A: N/A (12/23/2019 20:50:Teetee James RN) 58b. Vacuum - Unsuccessful A: Successful (12/23/2019 20:50:Teetee James RN) 58c. Presentation at 58c. Presentation at - A : Vertex (12/23/2019 20:50:Teetee James RN) 58c. Presentation at - A : N/A (12/23/2019 20:50:Teetee James RN) 58c. Presentation at - A : Cephalic (01/22/2020 20:26:Madyson Robison RN) Final Route and Method of Del 58d. Baby A Route/Delivery: Vaginal (12/23/2019 20:50:Teetee James RN) 58e. Trial of Labor Attempted: No (12/23/2019 20:50:Letty Santana RN) 58e. Trial of Labor Attempted A: N/A (12/23/2019 20:50:Letty Santana RN) 58e. Trial of Labor Attempted B: N/A (12/23/2019 20:50:Letty Santana RN) Maternal Morbidity 59b. 3rd or 4th Degree Lacs: Perineal; Vaginal (12/23/2019 20:50:Lane Beckett MD ([place])) Birthweight Baby A: 3835 (12/23/2019 20:50:Teetee James RN) 60a. Pounds : 8 (12/23/2019 20:50:QS system process) 60b. Ounces: 7 (12/23/2019 20:50:QS system process) 61. GA at Delivery Baby A: 40.1 (12/23/2019 20:50:Teetee James RN) : Full Term- 39- 40.6 Weeks (12/23/2019 20:50:QS system process) 62a. 5 Minute Baby A: 9 (12/23/2019 20:50:QS system process)
[2020-01-23] MEDS: IBUPROFEN 800 MG TABLET PO SCH (22:21)
[2020-01-23] MEDS: FAMOTIDINE 20 MG TABLET PO SCH (22:23)
[2020-01-24] MEDS: IBUPROFEN 800 MG TABLET PO SCH ×3 (05:56→21:27)
[2020-01-24] MEDS: AMPICILLIN SODIUM/SULBACTAM NA 1.5 GM in NORMAL SALINE 50 ML IV SCH ×4 (05:59→11:14)
[2020-01-24 07:37] LABS: HEMATOCRIT 20.3 % (36.0-47.0); MEAN CORPUSCULAR HEMOGLOBIN 29.1 pg (27.0-33.4); MEAN CORPUSCULAR HGB CONC 33.9 g/dL (32.0-36.0); MEAN CORPUSCULAR VOLUME 86 fl (80-97); PLATELET COUNT 196 10^3/uL (150-450); RED BLOOD COUNT 2.37 10^6/uL (3.72-5.28); RED CELL DISTRIBUTION WIDTH 17.2 % (11.5-14.0); WHITE BLOOD COUNT 12.7 10^3/uL (4.0-10.5)
[2020-01-24 07:44] LABS: HEMOGLOBIN 6.9 g/dL (12.0-15.5)
--- NOTE | 2020-01-24 09:56 | PDOC PROGRESS REPORT ---
Subjective-OB Progress Note for:: 01/24/20 Subjective: Doing well, hsb at BS, explained she needs blood and going to receive 1 unit, breast and bottle, matamoros in place Physical Exam (OB) Vital Signs: Temp Pulse Resp BP Pulse Ox 98.3 F 74 16 119/60 100 01/24/20 09:23 01/24/20 09:23 01/24/20 09:23 01/24/20 09:23 01/24/20 09:23 Intake & Output 01/23/20 01/24/20 01/25/20 06:59 06:59 06:59 Intake Total 340 50 Output Total 800 Balance -460 50 Weight 64.7 kg - Maternal Morbidity 59. Maternal Morbidity (serious complications experinced by the mother associated with labor and delivery: None of the above Objective-Diagnostic Laboratory: 01/24/20 06:52 01/22/20 01/23/20 01/24/20 12:49 17:40 06:52 WBC 18.7 H D 12.7 H RBC 3.42 L 2.37 L Hgb 9.9 L 6.9 L D Hct 29.1 L 20.3 L MCV 85 86 MCH 28.9 29.1 MCHC 33.9 33.9 RDW 17.4 H 17.2 H Plt Count 240 196 Blood Type O POSITIVE Antibody Screen NEGATIVE Assessment and Plan(PN) - Assessment and Plan (1) hemorrhage Qualifiers: hemorrhage type: unspecified Qualified Code(s): O72.1 - Other immediate hemorrhage Is this a current diagnosis for this admission?: Yes (2) Anemia Qualifiers: Other causes of anemia: acute posthemorrhagic Is this a current diagnosis for this admission?: Yes (3) First degree perineal laceration during delivery Is this a current diagnosis for this admission?: Yes (4) Vacuum-assisted vaginal delivery Is this a current diagnosis for this admission?: Yes (5) Chorioamnionitis, delivered, current hospitalization Is this a current diagnosis for this admission?: Yes (6) Oligohydramnios Qualifiers: Fetus number: single or unspecified fetus Is this a current diagnosis for this admission?: Yes - Time Spent with Patient Time with patient: Less than 15 minutes Medications reviewed and adjusted accordingly: Yes - Disposition Anticipated Discharge Disposition: Home, Self Care Anticipated Discharge Timeframe: within 24 hours - receiving blood today, plan to remove matamoros later and ambulate
[2020-01-24] MEDS: PRENATAL VITAMIN W DHA CAPSULE PO SCH (11:18)
[2020-01-24] MEDS: SENNOSIDES/DOCUSATE 8.6-50 MG 1 EACH TABLET PO SCH (11:18)
[2020-01-24] MEDS: FAMOTIDINE 20 MG TABLET PO SCH ×2 (11:18→21:27)
[2020-01-24] MEDS: DOCUSATE SODIUM 100 MG CAPSULE PO SCH ×2 (11:18→18:45)
[2020-01-24] MEDS: FERROUS SULFATE 325 MG TABLET PO SCH ×2 (11:19→18:45)
[2020-01-24 14:52] LABS: ABSOLUTE EOSINOPHILS # (AUTO) 0.1 10^3/uL (0.0-0.6); ABSOLUTE LYMPHOCYTES (AUTO) 1.5 10^3/uL (0.5-4.7); ABSOLUTE MONOCYTES (AUTO) 0.6 10^3/uL (0.1-1.4); ABSOLUTE NEUT (AUTO) 11.2 10^3/uL (1.7-8.2); BASOPHILS % (AUTO) 0.3 % (0-2); EOSINOPHILS % (AUTO) 1.1 % (0-6); HEMOGLOBIN 8.9 g/dL (12.0-15.5); LYMPHOCYTES % (AUTO) 11.4 % (13-45); MEAN CORPUSCULAR HEMOGLOBIN 29.2 pg (27.0-33.4); MEAN CORPUSCULAR HGB CONC 34.2 g/dL (32.0-36.0); MEAN CORPUSCULAR VOLUME 86 fl (80-97); MONOCYTES % (AUTO) 4.7 % (3-13); PLATELET COUNT 220 10^3/uL (150-450); RED BLOOD COUNT 3.03 10^6/uL (3.72-5.28); RED CELL DISTRIBUTION WIDTH 16.8 % (11.5-14.0); SEGMENTED NEUTROPHILS % (AUTO) 82.5 % (42-78); TOTAL CELLS COUNTED % (AUTO) 100 %; WHITE BLOOD COUNT 13.6 10^3/uL (4.0-10.5)
--- NOTE | 2020-01-24 18:20 | PDOC PROGRESS REPORT ---
Subjective-OB Progress Note for:: 01/23/20 Subjective: Late entry note: Approximately 30min to 1 hour after delivery. I was called back into room to evaluate continued bleeding despite Pitocin, cytotec and methergine. Pt was placed in lithotomy, bed broken and light adjusted. I put on sterile gloves and explored her uterus, minimal clots removed, fundus was firm. Upon evaluation of vagina, laceration noted to be bleeding. I used lidocaine, and 2.0 Chromic suture for repair. Deep vaginal laceration near Lt Sulcus was sutured and bleeding significantly slowed. Suture was brought down to perineal area and skin was approximated. Pt was given Fentanyl prior to uterine exploration. Physical Exam (OB) Vital Signs: Temp Pulse Resp BP Pulse Ox 98.5 F 78 16 124/68 99 01/24/20 12:23 01/24/20 12:23 01/24/20 12:23 01/24/20 12:23 01/24/20 12:23 Intake & Output 01/23/20 01/24/20 01/25/20 06:59 06:59 06:59 Intake Total 340 470 Output Total 800 1000 Balance -460 -530 Weight 64.7 kg - Maternal Morbidity 59. Maternal Morbidity (serious complications experinced by the mother associated with labor and delivery: Maternal transfusion, None of the above - Lochia Lochia Amount: Heavy >50 ml Lochia Color: Rubra/Red - Abdomen Description: Tender Hernia Present: Yes Fundal Description: Firm, Midline Fundal Height: u/3 - u/4 Objective-Diagnostic Laboratory: 01/24/20 14:31 01/22/20 01/23/20 01/24/20 12:49 17:40 06:52 WBC 18.7 H D 12.7 H RBC 3.42 L 2.37 L Hgb 9.9 L 6.9 L D Hct 29.1 L 20.3 L MCV 85 86 MCH 28.9 29.1 MCHC 33.9 33.9 RDW 17.4 H 17.2 H Plt Count 240 196 Seg Neutrophils % Blood Type O POSITIVE Antibody Screen NEGATIVE 01/24/20 14:31 WBC 13.6 H RBC 3.03 L Hgb 8.9 L Hct 26.0 L MCV 86 MCH 29.2 MCHC 34.2 RDW 16.8 H Plt Count 220 Seg Neutrophils % 82.5 H Blood Type Antibody Screen Assessment and Plan(PN) - Assessment and Plan (1) Anemia Qualifiers: Other causes of anemia: acute posthemorrhagic Is this a current diagnosis for this admission?: Yes (2) Chorioamnionitis, delivered, current hospitalization Is this a current diagnosis for this admission?: Yes (3) Oligohydramnios Qualifiers: Fetus number: single or unspecified fetus Is this a current diagnosis for this admission?: Yes (4) hemorrhage Qualifiers: hemorrhage type: unspecified Qualified Code(s): O72.1 - Other immediate hemorrhage Is this a current diagnosis for this admission?: Yes (5) Vacuum-assisted vaginal delivery Is this a current diagnosis for this admission?: Yes (6) Second degree perineal laceration during delivery, delivered Is this a current diagnosis for this admission?: Yes Plan:: stat CBC, transfuse if hgb is low, Dr. Beckett on unit, replace matamoros catheter - Time Spent with Patient Time with patient: Less than 15 minutes Medications reviewed and adjusted accordingly: Yes - Disposition Anticipated Discharge Disposition: Home, Self Care Anticipated Discharge Timeframe: within 72 hours
[2020-01-25] MEDS: IBUPROFEN 800 MG TABLET PO SCH ×2 (05:00→14:34)
--- NOTE | 2020-01-25 10:03 | PDOC PROGRESS REPORT ---
Subjective-OB Progress Note for:: 01/25/20 Subjective: Doing better today after 1 unit of blood, hsb in room, states she is doing ok, ready to go home, scant bleeding, eating and drinking, breast and bottle feeding Physical Exam (OB) Vital Signs: Temp Pulse Resp BP Pulse Ox 97.8 F 67 16 121/66 100 01/25/20 07:08 01/25/20 07:08 01/25/20 07:08 01/25/20 07:08 01/25/20 07:08 Intake & Output 01/24/20 01/25/20 01/26/20 06:59 06:59 06:59 Intake Total 340 1470 Output Total 800 1400 Balance -460 70 - PIH/Pre-Eclampsia Clonus: Negative Headache: Absent Epigastric Pain: No Visual Changes: No - Maternal Morbidity 59. Maternal Morbidity (serious complications experinced by the mother associated with labor and delivery: Maternal transfusion, None of the above - Lochia Lochia Amount: Small 10-25 ml Lochia Color: Rubra/Red - Abdomen Description: Soft, Round Hernia Present: Yes Fundal Description: Firm, Midline Fundal Height: u/u - u/2 Objective-Diagnostic Laboratory: 01/24/20 14:31 01/24/20 14:31 WBC 13.6 H RBC 3.03 L Hgb 8.9 L Hct 26.0 L MCV 86 MCH 29.2 MCHC 34.2 RDW 16.8 H Plt Count 220 Seg Neutrophils % 82.5 H Assessment and Plan(PN) - Assessment and Plan (1) hemorrhage Qualifiers: hemorrhage type: unspecified Qualified Code(s): O72.1 - Other immediate hemorrhage Is this a current diagnosis for this admission?: Yes (2) Anemia Qualifiers: Other causes of anemia: acute posthemorrhagic Is this a current diagnosis for this admission?: Yes (3) First degree perineal laceration during delivery Is this a current diagnosis for this admission?: Yes (4) Vacuum-assisted vaginal delivery Is this a current diagnosis for this admission?: Yes (5) Chorioamnionitis, delivered, current hospitalization Is this a current diagnosis for this admission?: Yes (6) Oligohydramnios Qualifiers: Fetus number: single or unspecified fetus Is this a current diagnosis for this admission?: Yes (7) Blood transfusion during current hospitalisation Is this a current diagnosis for this admission?: Yes - Time Spent with Patient Time with patient: Less than 15 minutes Medications reviewed and adjusted accordingly: Yes - Disposition Anticipated Discharge Disposition: Home, Self Care Anticipated Discharge Timeframe: within 24 hours - instructions will be given in Congolese, home today,
--- NOTE | 2020-01-25 10:09 | PDOC DISCHARGE SUMMARY ---
Impression - Admit/DC Date/PCP Admission Date/Primary Care Provider: 01/22/20 12:30 Discharge Date: 01/25/20 - Discharge Diagnosis (1) hemorrhage Is this a current diagnosis for this admission?: Yes (2) Anemia Is this a current diagnosis for this admission?: Yes (3) First degree perineal laceration during delivery Is this a current diagnosis for this admission?: Yes (4) Vacuum-assisted vaginal delivery Is this a current diagnosis for this admission?: Yes (5) Chorioamnionitis, delivered, current hospitalization Is this a current diagnosis for this admission?: Yes (6) Oligohydramnios Is this a current diagnosis for this admission?: Yes (7) Blood transfusion during current hospitalisation Is this a current diagnosis for this admission?: Yes - Additional Information Resuscitation Status: Full Code Discharge Diet: As Tolerated, Regular Discharge Activity: Activity As Tolerated, Pelvic Rest Referrals: SAJI GARCIA MD [ACTIVE PROVISIONAL STAFF] - (in 2 weeks) Prescriptions: Ferrous Sulfate [Feosol 325 mg Tablet] 325 mg PO BID #60 tablet Home Medications: Prenat 115/Iron Fum/Folic/Dss [ 19 Tablet] 1 tab PO DAILY 12/23/19 Ferrous Sulfate [Feosol 325 mg Tablet] 325 mg PO BID #60 tablet 01/25/20 HPI Gestational Age: 40.1 Reason(s) for Admission: Induction of Labor Admission Note: IUGR Procedures: NST, Ultrasound Intrapartum Procedure(s): Spontaneous Vaginal Delivery Complication(s): Laceration-Vaginal, Laceration-Perineal, Hemorrhage- Uterine Atony - Chorio Laceration-Degree: 1st Hospital Course Hospital Course: blood transfusion for anemia 59. Maternal Morbidity (serious complications experinced by the mother associated with labor and delivery: Maternal transfusion, None of the above Results Laboratory Results: WBC 13.6 10^3/uL (4.0-10.5) H 01/24/20 14:31 RBC 3.03 10^6/uL (3.72-5.28) L 01/24/20 14:31 Hgb 8.9 g/dL (12.0-15.5) L 01/24/20 14:31 Hct 26.0 % (36.0-47.0) L 01/24/20 14:31 MCV 86 fl (80-97) 01/24/20 14:31 MCH 29.2 pg (27.0-33.4) 01/24/20 14:31 MCHC 34.2 g/dL (32.0-36.0) 01/24/20 14:31 RDW 16.8 % (11.5-14.0) H 01/24/20 14:31 Plt Count 220 10^3/uL (150-450) 01/24/20 14:31 Lymph % (Auto) 11.4 % (13-45) L 01/24/20 14:31 [place] % (Auto) 4.7 % (3-13) 01/24/20 14:31 Eos % (Auto) 1.1 % (0-6) 01/24/20 14:31 Baso % (Auto) 0.3 % (0-2) 01/24/20 14:31 Absolute Neuts (auto) 11.2 10^3/uL (1.7-8.2) H 01/24/20 14:31 Absolute Lymphs (auto) 1.5 10^3/uL (0.5-4.7) 01/24/20 14:31 Absolute Monos (auto) 0.6 10^3/uL (0.1-1.4) 01/24/20 14:31 Absolute Eos (auto) 0.1 10^3/uL (0.0-0.6) 01/24/20 14:31 Absolute Basos (auto) 0.0 10^3/uL (0.0-0.2) 01/24/20 14:31 Seg Neutrophils % 82.5 % (42-78) H 01/24/20 14:31 Urine Color YELLOW 01/22/20 11:18 Urine Appearance SLIGHTLY-CLOUDY 01/22/20 11:18 Urine pH 5.0 (5.0-9.0) 01/22/20 11:18 Ur Specific [place] 1.014 01/22/20 11:18 Urine Protein NEGATIVE mg/dL (NEGATIVE) 01/22/20 11:18 Urine Glucose (UA) NEGATIVE mg/dL (NEGATIVE) 01/22/20 11:18 Urine Ketones NEGATIVE mg/dL (NEGATIVE) 01/22/20 11:18 Urine Blood SMALL (NEGATIVE) H 01/22/20 11:18 Urine Nitrite NEGATIVE (NEGATIVE) 01/22/20 11:18 Urine Bilirubin NEGATIVE (NEGATIVE) 01/22/20 11:18 Urine Urobilinogen NEGATIVE mg/dL (<2.0) 01/22/20 11:18 Ur Leukocyte Esterase NEGATIVE (NEGATIVE) 01/22/20 11:18 Urine Ascorbic Acid 20 (NEGATIVE) H 01/22/20 11:18 Membranes Rupture NEGATIVE (NEGATIVE) 01/22/20 11:18 Urine Opiates Screen NEGATIVE 01/22/20 11:18 Urine Methadone Screen NEGATIVE 01/22/20 11:18 Ur Barbiturates Screen NEGATIVE 01/22/20 11:18 Ur Phencyclidine Scrn NEGATIVE 01/22/20 11:18 Ur Amphetamines Screen NEGATIVE 01/22/20 11:18 U Benzodiazepines Scrn NEGATIVE 01/22/20 11:18 Urine Cocaine Screen NEGATIVE 01/22/20 11:18 U Marijuana (THC) Screen NEGATIVE 01/22/20 11:18 RPR NONREACTIVE (NONREACTIVE) 01/22/20 12:49 Blood Type O POSITIVE 01/22/20 12:49 Blood Type Confirm O POSITIVE 01/22/20 12:49 Antibody Screen NEGATIVE 01/22/20 12:49 Crossmatch See Detail 01/22/20 12:49 Impressions: Obstetrics Ultrasound 01/22/20 00:00 IMPRESSION: LIMITED OBSTETRICAL ULTRASOUND WITH MEASURED PARAMETERS DELINEATED ABOVE. Trimester of : Third trimester - 28 weeks to delivery. Plan Health Concerns: bleeding Plan of Treatment: discharge home, rev S&S to report Goals: no complications, no bleeding, take iron Time Spent: Less than 30 Minutes
[2020-01-25] MEDS: FAMOTIDINE 20 MG TABLET PO SCH (11:26)
[2020-01-25] MEDS: FERROUS SULFATE 325 MG TABLET PO SCH (11:26)
[2020-01-25] MEDS: PRENATAL VITAMIN W DHA CAPSULE PO SCH (11:26)
[2020-01-25] MEDS: DOCUSATE SODIUM 100 MG CAPSULE PO SCH (11:26)
[2020-01-25] MEDS: SENNOSIDES/DOCUSATE 8.6-50 MG 1 EACH TABLET PO SCH (11:27)
[2020-01-25 12:25] VITALS: BP 124/68
== END 2020-01-25 15:30 | disposition home or self-care (01) | DRG 805 ==
LOC: LC 10:54 → LR 12:30 → 2S 01-23 20:18
PROVIDERS: ADMIT Obstetrics & Gynecology; ATTEND Obstetrics & Gynecology
PROC: 10D07Z6 Extraction of Products of Conception, Vacuum, Via Natural or Artificial Opening (ICD-10-PCS; principal; 2020-01-23)
PROC: 0HQ9XZZ Repair Perineum Skin, External Approach (ICD-10-PCS; 2020-01-23)
PROC: 10907ZC Drainage of Amniotic Fluid, Therapeutic from Products of Conception, Via Natural or Artificial Opening (ICD-10-PCS; 2020-01-23)
PROC: 30233N1 Transfusion of Nonautologous Red Blood Cells into Peripheral Vein, Percutaneous Approach (ICD-10-PCS; 2020-01-24)
DX: O41.03X0 Oligohydramnios, third trimester, not applicable or unspecified (principal); O41.1230 Chorioamnionitis, third trimester, not applicable or unspecified; Z37.0 Single live birth; O72.1 Other immediate postpartum hemorrhage; Z3A.40 40 weeks gestation of pregnancy; O67.8 Other intrapartum hemorrhage; O99.02 Anemia complicating childbirth; O70.1 Second degree perineal laceration during delivery
CPT/HCPCS: 1967; 36415; 36430; 76815; 80307; 81005; 84112; 85025; 85027; 86592; 86850; 86900; 86901; 86920; 88307; 90707; 90715; 94760; J0295; J1170; J1200; J2210; J2300; J2405; J2550; J2590; J2795; J3010; J3490; P9016